=== PATIENT | male | born 1950 | race Caucasian/White ===

== ENCOUNTER 2024-03-06 01:14 | Outpatient (RCR) | payer MEDICARE, OTHER, SELFPAY ==
[2024-03-06] MEDS: Acetaminophen 325 MG TAB 650 MG PO (10:09)
[2024-03-06] MEDS: Normal Saline Flush 10 ML SYR IVP (10:09)
[2024-03-06] MEDS: EFGARTIGIMOD ALFA FCAB IVPB (10:37)
[2024-03-06] MEDS: NORMAL SALINE IVPB (10:37)
== END 2024-03-09 23:59 | disposition home or self-care (01) ==
LOC: INF 01:14
PROVIDERS: PCP Internal Medicine; Visit Provider Nurse Practitioner Family
DX: G70.00 Myasthenia gravis without (acute) exacerbation (principal)
CPT/HCPCS: 96365; J9332

== ENCOUNTER 2024-03-26 02:37 | Outpatient (RCR) | payer MEDICARE, OTHER, SELFPAY ==
[2024-03-12] MEDS: diphenhydrAMINE 25 MG CAP PO (10:10)
[2024-03-12] MEDS: Acetaminophen 325 MG TAB 650 MG PO (10:10)
[2024-03-12] MEDS: Normal Saline Flush 10 ML SYR IVP (10:11)
[2024-03-12] MEDS: NORMAL SALINE IVPB (10:29)
[2024-03-12] MEDS: EFGARTIGIMOD ALFA FCAB IVPB (10:29)
[2024-03-19] MEDS: Normal Saline Flush 10 ML SYR IVP (09:57)
[2024-03-19] MEDS: Acetaminophen 325 MG TAB 650 MG PO (09:57)
[2024-03-19] MEDS: diphenhydrAMINE 25 MG CAP PO (09:57)
[2024-03-19] MEDS: NORMAL SALINE IVPB (10:22)
[2024-03-19] MEDS: EFGARTIGIMOD ALFA FCAB IVPB (10:22)
[2024-03-26] MEDS: diphenhydrAMINE 25 MG CAP PO (09:58)
[2024-03-26] MEDS: Normal Saline Flush 10 ML SYR IVP (09:58)
[2024-03-26] MEDS: Acetaminophen 325 MG TAB 650 MG PO (09:58)
[2024-03-26] MEDS: NORMAL SALINE IVPB (10:22)
[2024-03-26] MEDS: EFGARTIGIMOD ALFA FCAB IVPB (10:22)
== END 2024-04-09 23:59 | disposition home or self-care (01) ==
LOC: INF 02:37
PROVIDERS: PCP Internal Medicine; Visit Provider Nurse Practitioner Family
DX: G70.00 Myasthenia gravis without (acute) exacerbation (principal)
CPT/HCPCS: 96365; J9332

== ENCOUNTER 2024-06-04 02:09 | Outpatient (RCR) | payer MEDICARE, OTHER, SELFPAY ==
[2024-05-21] MEDS: diphenhydrAMINE 25 MG CAP PO (09:52)
[2024-05-21] MEDS: Acetaminophen 325 MG TAB 650 MG PO (09:53)
[2024-05-21] MEDS: Normal Saline Flush 10 ML SYR IVP (09:53)
[2024-05-21] MEDS: EFGARTIGIMOD ALFA FCAB IVPB (10:17)
[2024-05-21] MEDS: NORMAL SALINE IVPB (10:17)
[2024-05-28] MEDS: diphenhydrAMINE 25 MG CAP PO (09:57)
[2024-05-28] MEDS: Acetaminophen 325 MG TAB 650 MG PO (09:58)
[2024-05-28] MEDS: Normal Saline Flush 10 ML SYR IVP (09:58)
[2024-05-28] MEDS: EFGARTIGIMOD ALFA FCAB IVPB (10:23)
[2024-05-28] MEDS: NORMAL SALINE IVPB (10:23)
[2024-06-04] MEDS: diphenhydrAMINE 25 MG CAP PO (10:00)
[2024-06-04] MEDS: Acetaminophen 325 MG TAB 650 MG PO (10:00)
[2024-06-04] MEDS: Normal Saline Flush 10 ML SYR IVP (10:00)
[2024-06-04] MEDS: NORMAL SALINE IVPB (10:42)
[2024-06-04] MEDS: EFGARTIGIMOD ALFA FCAB IVPB (10:42)
== END 2024-06-09 23:59 | disposition home or self-care (01) ==
LOC: INF 02:09
PROVIDERS: PCP Internal Medicine; Visit Provider Nurse Practitioner Family
DX: G70.00 Myasthenia gravis without (acute) exacerbation (principal)
CPT/HCPCS: 96365; J9332

== ENCOUNTER 2024-06-11 01:59 | Outpatient (RCR) | payer MEDICARE, OTHER, SELFPAY ==
[2024-06-11] MEDS: Acetaminophen 325 MG TAB 650 MG PO (09:58)
[2024-06-11] MEDS: Normal Saline Flush 10 ML SYR IVP (09:58)
[2024-06-11] MEDS: diphenhydrAMINE 25 MG CAP PO (09:58)
[2024-06-11] MEDS: NORMAL SALINE IVPB (10:16)
[2024-06-11] MEDS: EFGARTIGIMOD ALFA FCAB IVPB (10:16)
== END 2024-07-10 23:59 | disposition home or self-care (01) ==
LOC: INF 01:59
PROVIDERS: PCP Internal Medicine; Visit Provider Nurse Practitioner Family
DX: G70.00 Myasthenia gravis without (acute) exacerbation (principal)
CPT/HCPCS: 96365; J9332

== ENCOUNTER 2024-08-06 01:49 | Outpatient (RCR) | payer MEDICARE, OTHER, SELFPAY ==
[2024-07-30] MEDS: Normal Saline Flush 10 ML SYR IVP ×2 (10:04→10:38)
[2024-07-30] MEDS: diphenhydrAMINE 25 MG CAP PO (10:04)
[2024-07-30] MEDS: Acetaminophen 325 MG TAB 650 MG PO (10:04)
[2024-07-30] MEDS: NORMAL SALINE IVPB (10:38)
[2024-07-30] MEDS: EFGARTIGIMOD ALFA FCAB IVPB (10:38)
[2024-08-06] MEDS: diphenhydrAMINE 25 MG CAP PO (09:56)
[2024-08-06] MEDS: Acetaminophen 325 MG TAB 650 MG PO (09:56)
[2024-08-06] MEDS: Normal Saline Flush 10 ML SYR IVP (09:57)
[2024-08-06] MEDS: NORMAL SALINE IVPB (10:20)
[2024-08-06] MEDS: EFGARTIGIMOD ALFA FCAB IVPB (10:20)
== END 2024-08-09 23:59 | disposition home or self-care (01) ==
LOC: INF 01:49
PROVIDERS: PCP Internal Medicine; Visit Provider Nurse Practitioner Family
DX: G70.00 Myasthenia gravis without (acute) exacerbation (principal)
CPT/HCPCS: 96365; J9332

== ENCOUNTER 2024-08-20 01:55 | Outpatient (RCR) | payer MEDICARE, OTHER, SELFPAY ==
[2024-08-13] MEDS: Acetaminophen 325 MG TAB 650 MG PO (10:33)
[2024-08-13] MEDS: diphenhydrAMINE 25 MG CAP PO (10:33)
[2024-08-13] MEDS: NORMAL SALINE IVPB (10:36)
[2024-08-13] MEDS: EFGARTIGIMOD ALFA FCAB IVPB (10:36)
[2024-08-13] MEDS: Normal Saline Flush 10 ML SYR IVP (10:37)
[2024-08-20] MEDS: diphenhydrAMINE 25 MG CAP PO (09:58)
[2024-08-20] MEDS: Acetaminophen 325 MG TAB 650 MG PO (09:59)
[2024-08-20] MEDS: Normal Saline Flush 10 ML SYR IVP (09:59)
[2024-08-20 10:03] VITALS: BP 115/69; PULSE 56; RESP 18; TEMP 36.3; O2SAT 98
[2024-08-20] MEDS: EFGARTIGIMOD ALFA FCAB IVPB (10:47)
[2024-08-20] MEDS: NORMAL SALINE IVPB (10:47)
== END 2024-09-09 23:59 | disposition home or self-care (01) ==
LOC: INF 01:55
PROVIDERS: PCP Internal Medicine; Visit Provider Nurse Practitioner Family
DX: G70.00 Myasthenia gravis without (acute) exacerbation (principal)
CPT/HCPCS: 96365; J9332

== ENCOUNTER 2024-10-08 03:42 | Outpatient (RCR) | payer MEDICARE, OTHER, SELFPAY ==
[2024-09-10 00:19] VITALS: BP 115/69; PULSE 56; RESP 18; TEMP 36.3
[2024-09-17] MEDS: Acetaminophen 325 MG TAB 650 MG PO (11:10)
[2024-09-17] MEDS: diphenhydrAMINE 25 MG CAP PO (11:10)
[2024-09-17] MEDS: NORMAL SALINE IVPB (11:12)
[2024-09-17] MEDS: EFGARTIGIMOD ALFA FCAB IVPB (11:12)
[2024-09-24] MEDS: Normal Saline Flush 10 ML SYR IVP (09:55)
[2024-09-24] MEDS: Acetaminophen 325 MG TAB 650 MG PO (09:56)
[2024-09-24] MEDS: diphenhydrAMINE 25 MG CAP PO (09:56)
[2024-09-24] MEDS: EFGARTIGIMOD ALFA FCAB IVPB (10:11)
[2024-09-24] MEDS: NORMAL SALINE IVPB (10:11)
[2024-10-01] MEDS: Acetaminophen 325 MG TAB 650 MG PO (09:54)
[2024-10-01] MEDS: diphenhydrAMINE 25 MG CAP PO (09:54)
[2024-10-01] MEDS: Normal Saline Flush 10 ML SYR IVP (10:00)
[2024-10-01] MEDS: EFGARTIGIMOD ALFA FCAB IVPB (10:12)
[2024-10-01] MEDS: NORMAL SALINE IVPB (10:12)
[2024-10-08 09:45] VITALS: BP 142/78; PULSE 67; RESP 18; TEMP 37; O2SAT 97
[2024-10-08] MEDS: diphenhydrAMINE 25 MG CAP PO (09:49)
[2024-10-08] MEDS: Acetaminophen 325 MG TAB 650 MG PO (09:49)
[2024-10-08] MEDS: NORMAL SALINE IVPB (10:08)
[2024-10-08] MEDS: EFGARTIGIMOD ALFA FCAB IVPB (10:08)
== END 2024-10-10 23:59 | disposition home or self-care (01) ==
LOC: INF 03:42
PROVIDERS: PCP Internal Medicine; Visit Provider Nurse Practitioner Family
DX: G70.00 Myasthenia gravis without (acute) exacerbation (principal)
CPT/HCPCS: 96365; J9332

== ENCOUNTER 2024-11-05 03:03 | Outpatient (RCR) | payer MEDICARE, OTHER, SELFPAY ==
[2024-11-05] MEDS: Normal Saline Flush 10 ML SYR IVP (09:42)
[2024-11-05] MEDS: Acetaminophen 325 MG TAB 650 MG PO (09:42)
[2024-11-05] MEDS: diphenhydrAMINE 25 MG CAP PO (09:42)
[2024-11-05] MEDS: NORMAL SALINE IVPB (10:02)
[2024-11-05] MEDS: EFGARTIGIMOD ALFA FCAB IVPB (10:02)
== END 2024-11-07 23:59 | disposition home or self-care (01) ==
LOC: INF 03:03
PROVIDERS: PCP Internal Medicine; Visit Provider Nurse Practitioner Family
DX: G70.00 Myasthenia gravis without (acute) exacerbation (principal)
CPT/HCPCS: 96365; J9332

== ENCOUNTER 2024-11-26 02:36 | Outpatient (RCR) | payer MEDICARE, OTHER, SELFPAY ==
[2024-11-12] MEDS: diphenhydrAMINE 25 MG CAP PO (10:02)
[2024-11-12] MEDS: Acetaminophen 325 MG TAB 650 MG PO (10:03)
[2024-11-12] MEDS: NORMAL SALINE IVPB (10:23)
[2024-11-12] MEDS: EFGARTIGIMOD ALFA FCAB IVPB (10:23)
[2024-11-12] MEDS: Normal Saline Flush 5 ML SYR IVP (11:13)
[2024-11-19] MEDS: Acetaminophen 325 MG TAB 650 MG PO (09:48)
[2024-11-19] MEDS: diphenhydrAMINE 25 MG CAP PO (09:48)
[2024-11-19] MEDS: Normal Saline Flush 10 ML SYR IVP (09:49)
[2024-11-19] MEDS: NORMAL SALINE IVPB (10:21)
[2024-11-19] MEDS: EFGARTIGIMOD ALFA FCAB IVPB (10:21)
[2024-11-26] MEDS: Acetaminophen 325 MG TAB 650 MG PO (09:57)
[2024-11-26] MEDS: Normal Saline Flush 5 ML SYR IVP (09:58)
[2024-11-26] MEDS: diphenhydrAMINE 25 MG CAP PO (09:58)
[2024-11-26] MEDS: EFGARTIGIMOD ALFA FCAB IVPB (10:02)
[2024-11-26] MEDS: NORMAL SALINE IVPB (10:02)
== END 2024-12-08 23:59 | disposition home or self-care (01) ==
LOC: INF 02:36
PROVIDERS: PCP Internal Medicine; Visit Provider Nurse Practitioner Family
DX: G70.00 Myasthenia gravis without (acute) exacerbation (principal)
CPT/HCPCS: 96365; J9332

== ENCOUNTER 2024-12-31 03:02 | Outpatient (RCR) | payer MEDICARE, OTHER, SELFPAY ==
[2024-12-25] MEDS: diphenhydrAMINE 25 MG CAP PO (09:46)
[2024-12-25] MEDS: Acetaminophen 325 MG TAB 650 MG PO (09:46)
[2024-12-25] MEDS: Normal Saline Flush 5 ML SYR IVP (09:47)
[2024-12-25] MEDS: EFGARTIGIMOD ALFA FCAB IVPB (10:03)
[2024-12-25] MEDS: NORMAL SALINE IVPB (10:03)
[2024-12-31 09:41] VITALS: BP 128/79; PULSE 62; RESP 20; TEMP 36.3; O2SAT 97
[2024-12-31] MEDS: Acetaminophen 325 MG TAB 650 MG PO (09:43)
[2024-12-31] MEDS: diphenhydrAMINE 25 MG CAP PO (09:45)
[2024-12-31] MEDS: EFGARTIGIMOD ALFA FCAB IVPB (10:18)
[2024-12-31] MEDS: NORMAL SALINE IVPB (10:18)
[2024-12-31] MEDS: Normal Saline Flush 5 ML SYR IVP (11:14)
== END 2025-01-07 23:59 | disposition home or self-care (01) ==
LOC: INF 03:02
PROVIDERS: PCP Internal Medicine; Visit Provider Nurse Practitioner Family
DX: G70.00 Myasthenia gravis without (acute) exacerbation (principal)
CPT/HCPCS: 96365; J9332

== ENCOUNTER 2025-01-15 01:17 | Outpatient (RCR) | payer MEDICARE, OTHER, SELFPAY ==
[2025-01-08] MEDS: Acetaminophen 325 MG TAB 650 MG PO (09:56)
[2025-01-08] MEDS: diphenhydrAMINE 25 MG CAP PO (09:56)
[2025-01-08] MEDS: NORMAL SALINE IVPB (10:05)
[2025-01-08] MEDS: EFGARTIGIMOD ALFA FCAB IVPB (10:05)
[2025-01-08] MEDS: Normal Saline Flush 5 ML SYR IVP (10:05)
[2025-01-15] MEDS: Acetaminophen 325 MG TAB 650 MG PO (10:11)
[2025-01-15] MEDS: diphenhydrAMINE 25 MG CAP PO (10:12)
[2025-01-15] MEDS: Normal Saline Flush 5 ML SYR IVP ×2 (10:12→10:29)
[2025-01-15] MEDS: NORMAL SALINE IVPB (10:25)
[2025-01-15] MEDS: EFGARTIGIMOD ALFA FCAB IVPB (10:25)
== END 2025-02-07 23:59 | disposition home or self-care (01) ==
LOC: INF 01:17
PROVIDERS: PCP Internal Medicine; Visit Provider Nurse Practitioner Family
DX: G70.00 Myasthenia gravis without (acute) exacerbation (principal)
CPT/HCPCS: 96365; J9332

== ENCOUNTER 2025-03-05 10:00 | Outpatient (RCR) | payer MEDICARE, OTHER, SELFPAY ==
[2025-02-12] MEDS: Acetaminophen 325 MG TAB 650 MG PO (12:54)
[2025-02-12] MEDS: diphenhydrAMINE 25 MG CAP PO (12:54)
[2025-02-12] MEDS: Normal Saline Flush 10 ML SYR IVP (12:54)
[2025-02-12] MEDS: EFGARTIGIMOD ALFA FCAB IVPB (13:13)
[2025-02-12] MEDS: NORMAL SALINE IVPB (13:13)
[2025-02-19] MEDS: NORMAL SALINE IVPB (10:23)
[2025-02-19] MEDS: EFGARTIGIMOD ALFA FCAB IVPB (10:23)
[2025-02-19] MEDS: Normal Saline Flush 10 ML SYR IVP (10:23)
[2025-02-19] MEDS: Acetaminophen 325 MG TAB 650 MG PO (10:24)
[2025-02-19] MEDS: diphenhydrAMINE 25 MG CAP PO (10:25)
[2025-02-26] MEDS: Acetaminophen 325 MG TAB 650 MG PO (10:02)
[2025-02-26] MEDS: Normal Saline Flush 10 ML SYR IVP (10:02)
[2025-02-26] MEDS: diphenhydrAMINE 25 MG CAP PO (10:02)
[2025-02-26] MEDS: NORMAL SALINE IVPB (10:08)
[2025-02-26] MEDS: EFGARTIGIMOD ALFA FCAB IVPB (10:08)
[2025-03-05] MEDS: Acetaminophen 325 MG TAB 650 MG PO (10:02)
[2025-03-05] MEDS: Normal Saline Flush 10 ML SYR IVP (10:02)
[2025-03-05] MEDS: diphenhydrAMINE 25 MG CAP PO (10:02)
[2025-03-05] MEDS: EFGARTIGIMOD ALFA FCAB IVPB (10:23)
[2025-03-05] MEDS: NORMAL SALINE IVPB (10:23)
== END 2025-03-09 23:59 | disposition home or self-care (01) ==
LOC: INF 10:00
PROVIDERS: PCP Internal Medicine; Visit Provider Nurse Practitioner Family
DX: G70.00 Myasthenia gravis without (acute) exacerbation (principal)
CPT/HCPCS: 96365; J9332

== ENCOUNTER 2025-04-02 01:51 | Outpatient (RCR) | payer MEDICARE, OTHER, SELFPAY ==
[2025-04-02] MEDS: Acetaminophen 325 MG TAB 650 MG PO (09:57)
[2025-04-02] MEDS: diphenhydrAMINE 25 MG CAP PO (09:57)
[2025-04-02] MEDS: EFGARTIGIMOD ALFA FCAB IVPB (10:16)
[2025-04-02] MEDS: NORMAL SALINE IVPB (10:16)
[2025-04-02] MEDS: Normal Saline Flush 10 ML SYR IVP (11:41)
== END 2025-04-09 23:59 | disposition home or self-care (01) ==
LOC: INF 01:51
PROVIDERS: PCP Internal Medicine; Visit Provider Nurse Practitioner Family
DX: G70.00 Myasthenia gravis without (acute) exacerbation (principal)
CPT/HCPCS: 96365; 96366; J9332

== ENCOUNTER 2025-04-09 02:29 | Outpatient (CLI) | payer MEDICARE, OTHER, SELFPAY ==
[2025-04-09] MEDS: Acetaminophen 325 MG TAB 650 MG PO (10:09)
[2025-04-09] MEDS: Normal Saline Flush 10 ML SYR IVP (10:10)
[2025-04-09] MEDS: diphenhydrAMINE 25 MG CAP PO (10:10)
[2025-04-09] MEDS: NORMAL SALINE IVPB (10:33)
[2025-04-09] MEDS: EFGARTIGIMOD ALFA FCAB IVPB (10:33)
== END 2025-04-09 02:30 | disposition home or self-care (01) ==
LOC: INF 02:29
PROVIDERS: PCP Internal Medicine; Visit Provider Family Medicine
DX: G70.00 Myasthenia gravis without (acute) exacerbation (principal)
CPT/HCPCS: 96365; J9332

== ENCOUNTER 2025-04-16 03:45 | Outpatient (CLI) | payer MEDICARE, OTHER, SELFPAY ==
[2025-04-16] MEDS: Acetaminophen 325 MG TAB 650 MG PO (10:05)
[2025-04-16] MEDS: diphenhydrAMINE 25 MG CAP PO (10:06)
[2025-04-16] MEDS: Normal Saline Flush 10 ML SYR IVP (10:06)
[2025-04-16] MEDS: NORMAL SALINE IVPB (10:13)
[2025-04-16] MEDS: EFGARTIGIMOD ALFA FCAB IVPB (10:13)
== END 2025-04-16 03:46 | disposition home or self-care (01) ==
LOC: INF 03:45
PROVIDERS: PCP Internal Medicine; Visit Provider Family Medicine
DX: G70.00 Myasthenia gravis without (acute) exacerbation (principal)
CPT/HCPCS: 96365; J9332

== ENCOUNTER 2025-04-22 03:31 | Outpatient (CLI) | payer MEDICARE, OTHER, SELFPAY ==
[2025-04-22] MEDS: Acetaminophen 325 MG TAB 650 MG PO (10:04)
[2025-04-22] MEDS: diphenhydrAMINE 25 MG CAP PO (10:04)
[2025-04-22] MEDS: Normal Saline Flush 10 ML SYR IVP (10:05)
[2025-04-22] MEDS: NORMAL SALINE IVPB (10:48)
[2025-04-22] MEDS: EFGARTIGIMOD ALFA FCAB IVPB (10:48)
== END 2025-04-22 03:32 | disposition home or self-care (01) ==
PROVIDERS: PCP Internal Medicine; Visit Provider Family Medicine
DX: G70.00 Myasthenia gravis without (acute) exacerbation (principal)
CPT/HCPCS: 96365; J9332

== ENCOUNTER 2025-05-21 03:50 | Outpatient (CLI) | payer MEDICARE, OTHER, SELFPAY ==
[2025-05-21] MEDS: Normal Saline Flush 10 ML SYR IVP (10:02)
[2025-05-21] MEDS: Acetaminophen 325 MG TAB 650 MG PO (10:02)
[2025-05-21] MEDS: diphenhydrAMINE 25 MG CAP PO (10:02)
[2025-05-21] MEDS: NORMAL SALINE IVPB (10:12)
[2025-05-21] MEDS: EFGARTIGIMOD ALFA FCAB IVPB (10:12)
== END 2025-05-21 03:51 | disposition home or self-care (01) ==
LOC: INF 03:50
PROVIDERS: PCP Internal Medicine; Visit Provider Family Medicine
DX: G70.00 Myasthenia gravis without (acute) exacerbation (principal)
CPT/HCPCS: 96365; J9332

== ENCOUNTER 2025-05-28 10:37 | Outpatient (CLI) | payer MEDICARE, OTHER, SELFPAY ==
[2025-05-28] MEDS: diphenhydrAMINE 25 MG CAP PO (10:08)
[2025-05-28] MEDS: Acetaminophen 325 MG TAB 650 MG PO (10:08)
[2025-05-28] MEDS: Normal Saline Flush 10 ML SYR IVP (10:08)
[2025-05-28] MEDS: EFGARTIGIMOD ALFA FCAB IVPB (10:40)
[2025-05-28] MEDS: NORMAL SALINE IVPB (10:40)
== END 2025-05-28 10:38 | disposition home or self-care (01) ==
LOC: INF 10:38
PROVIDERS: PCP Internal Medicine; Visit Provider Family Medicine
DX: G70.00 Myasthenia gravis without (acute) exacerbation (principal)
CPT/HCPCS: 96365; J9332

== ENCOUNTER 2025-06-03 03:53 | Outpatient (CLI) | payer MEDICARE, OTHER, SELFPAY ==
[2025-06-03] MEDS: diphenhydrAMINE 25 MG CAP PO (10:55)
[2025-06-03] MEDS: Acetaminophen 325 MG TAB 650 MG PO (10:56)
[2025-06-03] MEDS: Normal Saline Flush 10 ML SYR IVP (10:56)
[2025-06-03] MEDS: NORMAL SALINE IVPB (11:22)
[2025-06-03] MEDS: EFGARTIGIMOD ALFA FCAB IVPB (11:22)
== END 2025-06-03 03:54 | disposition home or self-care (01) ==
PROVIDERS: PCP Internal Medicine; Visit Provider Family Medicine
DX: G70.00 Myasthenia gravis without (acute) exacerbation (principal)
CPT/HCPCS: 96365; J9332

== ENCOUNTER 2025-06-10 03:53 | Outpatient (CLI) | payer MEDICARE, OTHER, SELFPAY ==
[2025-06-10] MEDS: diphenhydrAMINE 25 MG CAP PO (10:06)
[2025-06-10] MEDS: Acetaminophen 325 MG TAB 650 MG PO (10:06)
[2025-06-10] MEDS: NORMAL SALINE IVPB (10:39)
[2025-06-10] MEDS: EFGARTIGIMOD ALFA FCAB IVPB (10:39)
[2025-06-10] MEDS: Normal Saline Flush 10 ML SYR IVP (10:40)
== END 2025-06-10 03:54 | disposition home or self-care (01) ==
LOC: INF 03:54
PROVIDERS: PCP Internal Medicine; Visit Provider Family Medicine
DX: G70.00 Myasthenia gravis without (acute) exacerbation (principal)
CPT/HCPCS: 96365; J9332

== ENCOUNTER 2025-07-08 02:25 | Outpatient (CLI) | payer MEDICARE, OTHER, SELFPAY ==
[2025-07-08] MEDS: diphenhydrAMINE 25 MG CAP PO (09:56)
[2025-07-08] MEDS: Acetaminophen 325 MG TAB 650 MG PO (09:56)
[2025-07-08] MEDS: Normal Saline Flush 10 ML SYR IVP (09:57)
[2025-07-08] MEDS: NORMAL SALINE IVPB (10:09)
[2025-07-08] MEDS: EFGARTIGIMOD ALFA FCAB IVPB (10:09)
== END 2025-07-08 02:26 | disposition home or self-care (01) ==
LOC: INF 02:25
PROVIDERS: PCP Internal Medicine; Visit Provider Family Medicine
DX: G70.00 Myasthenia gravis without (acute) exacerbation (principal)
CPT/HCPCS: 96365; J9332

== ENCOUNTER 2025-07-15 03:42 | Outpatient (CLI) | payer MEDICARE, OTHER, SELFPAY ==
[2025-07-15] MEDS: Acetaminophen 325 MG TAB 650 MG PO (10:13)
[2025-07-15] MEDS: diphenhydrAMINE 25 MG CAP PO (10:14)
[2025-07-15] MEDS: Normal Saline Flush 10 ML SYR IVP (10:14)
[2025-07-15] MEDS: NORMAL SALINE IVPB (10:36)
[2025-07-15] MEDS: EFGARTIGIMOD ALFA FCAB IVPB (10:36)
== END 2025-07-15 03:43 | disposition home or self-care (01) ==
LOC: INF 03:42
PROVIDERS: PCP Internal Medicine; Visit Provider Family Medicine
DX: G70.00 Myasthenia gravis without (acute) exacerbation (principal)
CPT/HCPCS: 96365; J9332

== ENCOUNTER 2025-07-22 01:39 | Outpatient (CLI) | payer MEDICARE, OTHER, SELFPAY ==
[2025-07-22] MEDS: Normal Saline Flush 10 ML SYR IVP (09:56)
[2025-07-22] MEDS: Acetaminophen 325 MG TAB 650 MG PO (09:56)
[2025-07-22] MEDS: diphenhydrAMINE 25 MG CAP PO (09:56)
[2025-07-22] MEDS: NORMAL SALINE IVPB (10:15)
[2025-07-22] MEDS: EFGARTIGIMOD ALFA FCAB IVPB (10:15)
== END 2025-07-22 01:40 | disposition home or self-care (01) ==
LOC: INF 01:39
PROVIDERS: PCP Internal Medicine; Visit Provider Family Medicine
DX: G70.00 Myasthenia gravis without (acute) exacerbation (principal)
CPT/HCPCS: 96365; J9332

== ENCOUNTER 2025-07-29 03:20 | Outpatient (CLI) | payer MEDICARE, OTHER, SELFPAY ==
[2025-07-29] MEDS: Acetaminophen 325 MG TAB 650 MG PO (11:19)
[2025-07-29] MEDS: diphenhydrAMINE 25 MG CAP PO (11:19)
[2025-07-29] MEDS: Normal Saline Flush 10 ML SYR IVP (11:19)
[2025-07-29] MEDS: NORMAL SALINE IVPB (12:09)
[2025-07-29] MEDS: EFGARTIGIMOD ALFA FCAB IVPB (12:09)
== END 2025-07-29 03:21 | disposition home or self-care (01) ==
LOC: INF 03:21
PROVIDERS: PCP Internal Medicine; Visit Provider Family Medicine
DX: G70.00 Myasthenia gravis without (acute) exacerbation (principal)
CPT/HCPCS: 96365; J9332

== ENCOUNTER 2025-08-26 00:36 | Outpatient (CLI) | payer MEDICARE, OTHER, SELFPAY ==
[2025-08-26] MEDS: diphenhydrAMINE 25 MG CAP PO (10:58)
[2025-08-26] MEDS: Normal Saline Flush 10 ML SYR IVP (10:58)
[2025-08-26] MEDS: Acetaminophen 325 MG TAB 650 MG PO (10:58)
[2025-08-26] MEDS: EFGARTIGIMOD ALFA FCAB IVPB (11:13)
[2025-08-26] MEDS: NORMAL SALINE IVPB (11:13)
== END 2025-08-26 00:37 | disposition home or self-care (01) ==
LOC: INF 00:36
PROVIDERS: PCP Internal Medicine; Visit Provider Family Medicine
DX: G70.00 Myasthenia gravis without (acute) exacerbation (principal)
CPT/HCPCS: 96365; J9332

== ENCOUNTER 2025-09-01 01:04 | Outpatient (CLI) | payer MEDICARE, OTHER, SELFPAY ==
[2025-09-01] MEDS: diphenhydrAMINE 25 MG CAP PO (11:16)
[2025-09-01] MEDS: Normal Saline Flush 10 ML SYR IVP (11:16)
[2025-09-01] MEDS: EFGARTIGIMOD ALFA FCAB IVPB (11:22)
[2025-09-01] MEDS: NORMAL SALINE IVPB (11:22)
== END 2025-09-01 01:05 | disposition home or self-care (01) ==
LOC: INF 01:04
PROVIDERS: PCP Internal Medicine; Visit Provider Family Medicine
DX: G70.00 Myasthenia gravis without (acute) exacerbation (principal)
CPT/HCPCS: 96365; J9332

== ENCOUNTER 2025-09-09 02:30 | Outpatient (CLI) | payer MEDICARE, OTHER, SELFPAY ==
[2025-09-09] MEDS: Acetaminophen 325 MG TAB 650 MG PO (11:32)
[2025-09-09] MEDS: diphenhydrAMINE 25 MG CAP PO (11:32)
[2025-09-09] MEDS: EFGARTIGIMOD ALFA FCAB IVPB (11:53)
[2025-09-09] MEDS: NORMAL SALINE IVPB (11:53)
[2025-09-09] MEDS: Normal Saline Flush 10 ML SYR IVP (13:38)
== END 2025-09-09 02:31 | disposition home or self-care (01) ==
LOC: INF 02:30
PROVIDERS: PCP Internal Medicine; Visit Provider Family Medicine
DX: G70.00 Myasthenia gravis without (acute) exacerbation (principal)
CPT/HCPCS: 96365; J9332